=== PATIENT | female | born 1950 | race Caucasian/White ===

== ENCOUNTER 2019-05-17 01:08 | Inpatient (IN) ==
[2019-05-17] MEDS ORDERED: ENOXAPARIN 100 MG/ML SYRINGE SUBCUT STA (01:24)
[2019-05-17] MEDS ORDERED: dilTIAZem Drip 125 MG/125 ML PREMIX IV ONE (01:24)
[2019-05-17] MEDS ORDERED: ONDANSETRON 4 MG/2 ML VIAL IV STA (01:24)
[2019-05-17] MEDS ORDERED: ENOXAPARIN 100 MG/ML SYRINGE SUBCUT ONE (01:24)
[2019-05-17] MEDS ORDERED: DILTIAZEM 50 MG/10 ML VIAL IV STA ×2 (01:24→01:37)
[2019-05-17] MEDS ORDERED: ASPIRIN 325 MG TABLET ONE (01:24)
[2019-05-17] MEDS: dilTIAZem Drip 125 MG/125 ML PREMIX IV SCH (01:32)
[2019-05-17] MEDS ORDERED: ASPIRIN 325 MG TABLET PO STA (01:33)
[2019-05-17 01:34] LABS: Mean Corpuscular HGB Conc 29.2 GM/DL (32-36); NRBC # 0.07 10*3/uL; Red Cell Distribution Width 19.2 % (9.3-17.3)
[2019-05-17] MEDS ORDERED: FUROSEMIDE 40 MG/4 ML VIAL IV STA (01:36)
[2019-05-17 01:44] LABS: PT Patient Result 10.5 SECS (9.6-12.2)
[2019-05-17 01:45] LABS: Basophils % 0.3 % (0.0-0.8); Eosinophils % 0.1 % (0.00-10.9); Hematocrit 38.7 VOL% (35.7-47.0); Immature Granulocytes % 0.5 %; Immature Granulocytes Absolute 0.04 #; Lymphocytes # 1.7 10*3/uL (1.4-4.0); Lymphocytes % 21.5 % (21.3-54.2); Mean Corpuscular Volume 62.4 FL (87-102); Monocytes % 6.5 % (1.7-12.7); Neutrophils % 71.1 % (38.7-73.9); Platelet Count 228 T/CUMM (130-400); White Blood Count 7.9 T/CUMM (4-12)
[2019-05-17 01:46] LABS: Hemoglobin 11.3 GM/DL (12.0-16.0)
[2019-05-17] MEDS ORDERED: METOPROLOL TARTRATE 5 MG/5 ML VIAL IV ONE ×2 (01:57→12:14)
[2019-05-17] MEDS ORDERED: METOPROLOL TARTRATE 5 MG/5 ML VIAL IV STA (02:01)
[2019-05-17 02:24] LABS: Albumin 3.4 G/DL (3.4-5.0); Bilirubin,Total 0.6 MG/DL (0.2-1.0); Calcium 8.6 MG/DL (8.5-10.1); Osmolality,Calculated 286.5 MOS/KG (273-304); Total Protein 7.8 G/DL (6.4-8.3)
[2019-05-17 02:31] LABS: Free T4 (Free Thyroxine) 1.75 NG/DL (0.76-1.46); Thyroid Stimulating Hormone 0.006 uIU/ml (0.358-3.74)
[2019-05-17] MEDS ORDERED: MAGNESIUM SULF RIDER 2 GM in PREMIX 1 EACH IV STA (02:39)
[2019-05-17 04:53] LABS: Apearance,Urine CLEAR (Clear); Bacteria,Urine Many /HPF (Few); Bilirubin,Urine Negative (Negative); Blood, Urine Negative (Negative); Glucose,Urine (UA) 50 mg/dL (Negative); Hyaline Casts,Urine 9 /LPF (0-3); Ketones,Urine 5 mg/dL (Negative); Mucus,Urine Occasional /LPF (Occasional); Nitrite,Urine Negative (Negative); Protein,Urine Negative; RBC,Urine 1 /HPF (0-4); Squamous Epithelial Cell,Urine Occasional /HPF (0-10); Urine Color Yellow (Yellow); Urine Specific Gravity 1.011 (1.001-1.035); WBC,Urine 2 /HPF (0-6)
[2019-05-17] MEDS ORDERED: GLUCAGON 1 MG VIAL IM PRN (06:23)
[2019-05-17] MEDS ORDERED: DOCUSATE SODIUM 100 MG CAPSULE PO PRN (06:23)
[2019-05-17] MEDS ORDERED: DEXTROSE 50% 25 GM/50 ML VIAL IV PRN (06:23)
[2019-05-17] MEDS ORDERED: ONDANSETRON 4 MG/2 ML VIAL IV PRN (06:23)
[2019-05-17] MEDS ORDERED: PROMETHAZINE 25 MG/1 ML VIAL IM PRN (06:23)
[2019-05-17] MEDS ORDERED: MAGNESIUM SULF RIDER 4 GM in PREMIX 1 EACH IV PRN (06:28)
[2019-05-17] MEDS ORDERED: MAGNESIUM SULF RIDER 2 GM in PREMIX 1 EACH IV PRN (06:28)
[2019-05-17] MEDS ORDERED: SODIUM CHLORIDE 0.9% 1,000 ML IV SCH (06:30)
[2019-05-17] MEDS ORDERED: POTASSIUM CHLORIDE 20 MEQ TABLET PO PRN (06:31)
[2019-05-17] MEDS: INSULIN LISPRO 100 UNIT/ML SUBCUT SCH ×4 (08:10→21:32)
[2019-05-17] MEDS ORDERED: AMIODARONE INJ 150 MG in DEXTROSE 5% 100 ML IV ONE (12:19)
[2019-05-17] MEDS ORDERED: AMIODARONE INJ 450 MG in DEXTROSE 5% 241 ML IV SCH (12:30)
[2019-05-17] MEDS ORDERED: ENOXAPARIN 100 MG/ML SYRINGE SUBCUT SCH (13:00)
[2019-05-17] MEDS ORDERED: ENOXAPARIN 80 MG/0.8 ML SYRINGE SUBCUT SCH (13:00)
[2019-05-17] MEDS: carvediloL 3.125 MG TABLET PO SCH ×2 (13:36→21:12)
[2019-05-17] MEDS: ESTROGENS (CONJ) 0.625 MG TABLET PO SCH (16:27)
[2019-05-17] MEDS: DILTIAZEM 30 MG TABLET PO SCH ×2 (16:45→21:12)
[2019-05-17] MEDS: SACUBITRIL/VALSARTAN 49-51 MG TABLET PO SCH (21:12)
[2019-05-17] MEDS: APIXABAN 5 MG TABLET PO SCH (21:12)
[2019-05-17] MEDS: ASCORBIC ACID 500 MG TABLET PO SCH (21:12)
[2019-05-17] MEDS: AMIODARONE INJ 450 MG in DEXTROSE 5% 241 ML IV SCH (21:13)
[2019-05-18] MEDS: dilTIAZem Drip 125 MG/125 ML PREMIX IV SCH (01:40)
[2019-05-18] MEDS: ACETAMINOPHEN 325 MG TABLET PO PRN ×2 (02:55→14:26)
[2019-05-18 04:37] LABS: Basophils % 0.6 % (0.0-0.8); Eosinophils # 0.1 10*3/uL (0.0-0.87); Hemoglobin 9.9 GM/DL (12.0-16.0); Immature Granulocytes % 0.6 %; Immature Granulocytes Absolute 0.03 #; Lymphocytes # 2.3 10*3/uL (1.4-4.0); Lymphocytes % 48.6 % (21.3-54.2); Mean Corpuscular Volume 61.3 FL (87-102); Monocytes % 11.6 % (1.7-12.7); NRBC # 0.04 10*3/uL; Neutrophils % 35.6 % (38.7-73.9); Platelet Count 157 T/CUMM (130-400); Red Blood Count 5.38 MC/CUMM (3.8-5.5); Red Cell Distribution Width 18.3 % (9.3-17.3); White Blood Count 4.7 T/CUMM (4-12)
[2019-05-18 05:00] LABS: Calcium 8.2 MG/DL (8.5-10.1); Osmolality,Calculated 281.5 MOS/KG (273-304)
[2019-05-18 05:10] LABS: Eosinophils 2 % (0-10); Hypochromasia 1+; Lymphocytes 43 % (20-55); Macrocytosis Slight; Nucleated Red Blood Cells 2 (0-5); Ovalocytes Slight; Platelet Estimate Adequate; Polychromasia Slight; Segmented Neutrophils 42 % (50-85); Total Cells Counted 100
[2019-05-18] MEDS ORDERED: MAGNESIUM SULF RIDER 2 GM in PREMIX 1 EACH IV ONE (07:19)
[2019-05-18] MEDS: INSULIN LISPRO 100 UNIT/ML SUBCUT SCH ×4 (08:58→22:54)
[2019-05-18] MEDS: SACUBITRIL/VALSARTAN 49-51 MG TABLET PO SCH ×2 (08:59→21:56)
[2019-05-18] MEDS: APIXABAN 5 MG TABLET PO SCH ×2 (09:00→21:55)
[2019-05-18] MEDS: carvediloL 3.125 MG TABLET PO SCH (09:00)
[2019-05-18] MEDS: ASCORBIC ACID 500 MG TABLET PO SCH ×2 (09:00→21:55)
[2019-05-18] MEDS: DILTIAZEM CD 180 MG CAPSULE PO SCH ×2 (09:00→21:55)
[2019-05-18] MEDS: AMIODARONE 200 MG TABLET PO SCH ×2 (09:00→21:56)
[2019-05-18] MEDS: ESTROGENS (CONJ) 0.625 MG TABLET PO SCH (09:01)
[2019-05-18] MEDS: POTASSIUM CHLORIDE 20 MEQ TABLET PO SCH (09:01)
[2019-05-18] MEDS ORDERED: POTASSIUM CHLORIDE 20 MEQ TABLET PO ONE (10:13)
[2019-05-18] MEDS ORDERED: DIGOXIN 0.5 MG/2 ML AMP IV ONE (11:16)
[2019-05-18] MEDS: AMIODARONE INJ 450 MG in DEXTROSE 5% 241 ML IV SCH (13:00)
[2019-05-18] MEDS ORDERED: DILTIAZEM 60 MG TABLET PO ONE (13:25)
[2019-05-18] MEDS ORDERED: carvediloL 3.125 MG TABLET PO ONE (13:25)
[2019-05-18] MEDS: metFORMIN 500 MG TABLET PO SCH ×2 (15:01→21:56)
[2019-05-18] MEDS: carvediloL 6.25 MG TABLET PO SCH (22:53)
[2019-05-19] MEDS: dilTIAZem Drip 125 MG/125 ML PREMIX IV SCH (02:42)
[2019-05-19 07:05] LABS: Calcium 8.5 MG/DL (8.5-10.1); Osmolality,Calculated 282.4 MOS/KG (273-304)
[2019-05-19 07:31] LABS: Basophils % 0.6 % (0.0-0.8); Eosinophils # 0.1 10*3/uL (0.0-0.87); Hematocrit 36.7 VOL% (35.7-47.0); Hemoglobin 10.8 GM/DL (12.0-16.0); Immature Granulocytes % 0.4 %; Immature Granulocytes Absolute 0.02 #; Lymphocytes # 1.6 10*3/uL (1.4-4.0); Mean Corpuscular HGB Conc 29.4 GM/DL (32-36); Monocytes % 11.7 % (1.7-12.7); NRBC # 0.03 10*3/uL; Neutrophils % 52.3 % (38.7-73.9); Platelet Count 200 T/CUMM (130-400); Red Blood Count 5.83 MC/CUMM (3.8-5.5); Red Cell Distribution Width 19.2 % (9.3-17.3)
[2019-05-19] MEDS: INSULIN LISPRO 100 UNIT/ML SUBCUT SCH ×4 (09:05→21:40)
[2019-05-19] MEDS: POTASSIUM CHLORIDE 20 MEQ TABLET PO SCH (09:06)
[2019-05-19] MEDS: metFORMIN 500 MG TABLET PO SCH ×2 (09:06→21:39)
[2019-05-19] MEDS: carvediloL 6.25 MG TABLET PO SCH ×2 (09:06→21:39)
[2019-05-19] MEDS: ASCORBIC ACID 500 MG TABLET PO SCH ×2 (09:06→21:39)
[2019-05-19] MEDS: ESTROGENS (CONJ) 0.625 MG TABLET PO SCH (09:06)
[2019-05-19] MEDS: SACUBITRIL/VALSARTAN 49-51 MG TABLET PO SCH ×2 (09:07→21:40)
[2019-05-19] MEDS: AMIODARONE 200 MG TABLET PO SCH ×2 (09:07→21:38)
[2019-05-19] MEDS: DILTIAZEM CD 180 MG CAPSULE PO SCH ×2 (09:07→21:37)
[2019-05-19] MEDS: APIXABAN 5 MG TABLET PO SCH ×2 (09:07→21:40)
[2019-05-19 09:16] LABS: Anisocytosis 3+; Atypical Lymphocytes Few; Elliptocytes Few; Hypochromasia 2+; Microcytosis 2+; Ovalocytes Few; Platelet Estimate Adequate; Poikilocytosis 2+; Polychromasia Slight; Spherocytes Few; Target Cells Few
[2019-05-19] MEDS ORDERED: MAGNESIUM SULF RIDER 2 GM in PREMIX 1 EACH IV ONE (11:35)
[2019-05-20 06:53] LABS: Basophils % 0.4 % (0.0-0.8); Eosinophils # 0.1 10*3/uL (0.0-0.87); Eosinophils % 2.6 % (0.00-10.9); Hematocrit 35.3 VOL% (35.7-47.0); Hemoglobin 10.5 GM/DL (12.0-16.0); Immature Granulocytes % 0.4 %; Immature Granulocytes Absolute 0.02 #; Lymphocytes # 2.3 10*3/uL (1.4-4.0); Mean Corpuscular HGB Conc 29.7 GM/DL (32-36); Mean Corpuscular Volume 61.4 FL (87-102); Neutrophils % 42.6 % (38.7-73.9); Platelet Count 169 T/CUMM (130-400); Red Blood Count 5.75 MC/CUMM (3.8-5.5); Red Cell Distribution Width 18.6 % (9.3-17.3); White Blood Count 5.4 T/CUMM (4-12)
[2019-05-20 07:17] LABS: Calcium 8.2 MG/DL (8.5-10.1); Osmolality,Calculated 283.1 MOS/KG (273-304)
[2019-05-20] MEDS: ESTROGENS (CONJ) 0.625 MG TABLET PO SCH (09:30)
[2019-05-20] MEDS: AMIODARONE 200 MG TABLET PO SCH ×2 (09:30→20:57)
[2019-05-20] MEDS: metFORMIN 500 MG TABLET PO SCH (09:30)
[2019-05-20] MEDS: SACUBITRIL/VALSARTAN 49-51 MG TABLET PO SCH ×2 (09:31→20:56)
[2019-05-20] MEDS: DILTIAZEM CD 180 MG CAPSULE PO SCH ×2 (09:31→20:56)
[2019-05-20] MEDS: POTASSIUM CHLORIDE 20 MEQ TABLET PO SCH (09:32)
[2019-05-20] MEDS: APIXABAN 5 MG TABLET PO SCH ×2 (09:32→20:56)
[2019-05-20] MEDS: ASCORBIC ACID 500 MG TABLET PO SCH ×2 (09:32→20:56)
[2019-05-20] MEDS: carvediloL 6.25 MG TABLET PO SCH (09:32)
[2019-05-20] MEDS: INSULIN LISPRO 100 UNIT/ML SUBCUT SCH ×4 (09:33→20:57)
[2019-05-20 10:25] LABS: Anisocytosis 2+; Hypochromasia 2+; Microcytosis 1+; Ovalocytes 1+; Polychromasia Slight; Schistocytes Few; Spherocytes Slight; Target Cells 1+
[2019-05-20 10:26] LABS: Platelet Estimate Adequate
[2019-05-20] MEDS ORDERED: MAGNESIUM SULF RIDER 2 GM in PREMIX 1 EACH IV ONE (11:11)
[2019-05-20] MEDS ORDERED: carvediloL 6.25 MG TABLET PO ONE (11:18)
[2019-05-20] MEDS: FUROSEMIDE 40 MG/4 ML VIAL IV SCH ×2 (14:58→17:34)
[2019-05-20] MEDS ORDERED: carvediloL 12.5 MG TABLET PO SCH (17:00)
[2019-05-21 05:54] LABS: Osmolality,Calculated 278.7 MOS/KG (273-304)
[2019-05-21] MEDS ORDERED: carvediloL 25 MG TABLET PO SCH (06:15)
[2019-05-21] MEDS: INSULIN LISPRO 100 UNIT/ML SUBCUT SCH ×2 (08:59→12:02)
[2019-05-21] MEDS ORDERED: POTASSIUM CHLORIDE 20 MEQ TABLET PO SCH (09:00)
[2019-05-21] MEDS: FUROSEMIDE 40 MG/4 ML VIAL IV SCH (09:01)
[2019-05-21] MEDS: ESTROGENS (CONJ) 0.625 MG TABLET PO SCH (09:02)
[2019-05-21] MEDS: SACUBITRIL/VALSARTAN 49-51 MG TABLET PO SCH (09:02)
[2019-05-21] MEDS: AMIODARONE 200 MG TABLET PO SCH (09:02)
[2019-05-21] MEDS: DILTIAZEM CD 180 MG CAPSULE PO SCH (09:03)
[2019-05-21] MEDS: APIXABAN 5 MG TABLET PO SCH (09:03)
[2019-05-21] MEDS: ASCORBIC ACID 500 MG TABLET PO SCH (09:03)
[2019-05-21 12:03] VITALS: BP 100/87
== END 2019-05-21 13:45 | disposition home or self-care (01) | DRG 309 ==
LOC: N.ED 01:08 → N.EDINP 06:10 → N.TELEN 12:12
PROVIDERS: ADMIT Internal Medicine; ATTEND Internal Medicine

== ENCOUNTER 2021-01-12 05:57 | Inpatient (IN) ==
[2021-01-05 12:47] LABS: INR 1.1; Partial Thromboplastin Time 26.7 SECS (23.9-33.8)
[2021-01-12] MEDS ORDERED: ACETAMINOPHEN 500 MG TABLET PO ONE (06:00)
[2021-01-12] MEDS ORDERED: FAMOTIDINE 20 MG TABLET PO ONE (06:00)
[2021-01-12] MEDS ORDERED: GABAPENTIN 400 MG CAPSULE PO ONE (06:00)
[2021-01-12] MEDS: LACTATED RINGERS 1,000 ML IV SCH ×2 (06:30→10:30)
[2021-01-12] MEDS ORDERED: propofoL 200 MG/20 ML VIAL IV ONE (06:34)
[2021-01-12] MEDS ORDERED: fentaNYL 100 MCG/2 ML VIAL ONE (06:34)
[2021-01-12] MEDS ORDERED: ONDANSETRON 4 MG/2 ML VIAL ONE (06:34)
[2021-01-12] MEDS ORDERED: ROCURONIUM 50 MG/5 ML VIAL IV ONE (06:34)
[2021-01-12] MEDS ORDERED: LIDOCAINE 2% 5 ML VIAL ONE (06:34)
[2021-01-12] MEDS ORDERED: SEVOFLURANE 1 UNIT/15 MINUTE INH ONE ×4 (06:34→08:26)
[2021-01-12] MEDS ORDERED: BUPIVACAINE MPF 0.25% 30 ML VIAL ONE (06:37)
[2021-01-12] MEDS ORDERED: LIDOCAINE 1%/EPI INJ 20 ML VIAL ONE (06:37)
[2021-01-12] MEDS ORDERED: TISSUE ADHESIVE 1 EACH APPLICATOR TOP ONE (06:37)
[2021-01-12] MEDS ORDERED: ePHEDrine 50 MG/ML VIAL ONE (07:18)
[2021-01-12] MEDS ORDERED: GLYCOPYRROLATE 0.4 MG/2 ML VIAL ONE (07:19)
[2021-01-12] MEDS ORDERED: NEOSTIGMINE 10 MG/10 ML VIAL ONE (07:19)
[2021-01-12] MEDS ORDERED: MORPHINE 10 MG/1 ML VIAL ONE (08:39)
[2021-01-12] MEDS ORDERED: ONDANSETRON 4 MG/2 ML VIAL IV PRN (09:24)
[2021-01-12] MEDS ORDERED: HYDROmorphone 2 MG/1 ML VIAL ONE (09:26)
[2021-01-12] MEDS: HYDROmorphone 2 MG/1 ML VIAL IV PRN ×5 (09:27→20:01)
[2021-01-12] MEDS: MORPHINE 2 MG/1 ML SYRINGE IV PRN ×4 (10:42→22:39)
[2021-01-12] MEDS: ONDANSETRON 4 MG/2 ML VIAL IV PRN ×3 (12:08→22:39)
[2021-01-12] MEDS: PANTOPRAZOLE 40 MG TABLET PO SCH (16:14)
[2021-01-12] MEDS: carvediloL 12.5 MG TABLET PO SCH (16:31)
[2021-01-12] MEDS: SACUBITRIL/VALSARTAN 49-51 MG TABLET PO SCH (21:52)
[2021-01-12] MEDS: ASCORBIC ACID 500 MG TABLET PO SCH (21:53)
[2021-01-12] MEDS: DILTIAZEM CD 180 MG CAPSULE PO SCH (21:53)
[2021-01-13] MEDS: ONDANSETRON 4 MG/2 ML VIAL IV PRN ×5 (03:50→21:21)
[2021-01-13] MEDS: HYDROmorphone 2 MG/1 ML VIAL IV PRN ×6 (03:51→21:21)
[2021-01-13 05:12] LABS: Basophils % 0.1 % (0.0-0.8); Hematocrit 36.8 VOL% (35.7-47.0); Immature Granulocytes % 0.6 %; Lymphocytes % 6.3 % (21.3-54.2); Mean Corpuscular HGB Conc 29.9 GM/DL (32-36); Mean Corpuscular Volume 61.6 FL (87-102); Monocytes % 8.3 % (1.7-12.7); Neutrophils % 84.7 % (38.7-73.9); Platelet Count 140 T/CUMM (130-400); Red Blood Count 5.97 MC/CUMM (3.8-5.5); Red Cell Distribution Width 17.8 % (9.3-17.3); White Blood Count 16.1 T/CUMM (4-12)
[2021-01-13 05:30] LABS: Albumin 3.3 G/DL (3.4-5.0); Bilirubin,Total 1.3 MG/DL (0.20-1.00); Osmolality,Calculated 278.7 MOS/KG (273-304); Potassium 3.6 MMOL/L (3.5-5.1); Total Protein 7.3 G/DL (6.4-8.2)
[2021-01-13 05:34] LABS: Anisocytosis Slight; Hypochromasia Slight; Ovalocytes 1+; Platelet Estimate Adequate
[2021-01-13] MEDS ORDERED: LEVOTHYROXINE 200 MCG TABLET PO SCH (06:30)
[2021-01-13] MEDS: ROSUVASTATIN 20 MG TABLET PO SCH (09:13)
[2021-01-13] MEDS: SACUBITRIL/VALSARTAN 49-51 MG TABLET PO SCH ×2 (09:14→21:21)
[2021-01-13] MEDS: POTASSIUM CHLORIDE 20 MEQ TABLET PO SCH (09:14)
[2021-01-13] MEDS: LEVOTHYROXINE 200 MCG TABLET PO SCH (09:14)
[2021-01-13] MEDS: DILTIAZEM CD 180 MG CAPSULE PO SCH ×2 (09:14→21:22)
[2021-01-13] MEDS: ASCORBIC ACID 500 MG TABLET PO SCH ×2 (09:14→21:22)
[2021-01-13] MEDS: PANTOPRAZOLE 40 MG TABLET PO SCH (09:14)
[2021-01-13] MEDS: carvediloL 12.5 MG TABLET PO SCH ×2 (09:14→16:21)
[2021-01-13] MEDS: LACTATED RINGERS 1,000 ML IV SCH (09:29)
[2021-01-14] MEDS: ONDANSETRON 4 MG/2 ML VIAL IV PRN ×5 (01:36→21:02)
[2021-01-14] MEDS: HYDROmorphone 2 MG/1 ML VIAL IV PRN ×5 (01:37→20:35)
[2021-01-14 04:56] LABS: Basophils % 0.2 % (0.0-0.8); Eosinophils # 0.1 10*3/uL (0.0-0.87); Eosinophils % 0.7 % (0.00-10.9); Hematocrit 34.3 VOL% (35.7-47.0); Hemoglobin 10.4 GM/DL (12.0-16.0); Immature Granulocytes % 0.5 %; Immature Granulocytes Absolute 0.05 #; Lymphocytes # 2.2 10*3/uL (1.4-4.0); Lymphocytes % 21.1 % (21.3-54.2); Mean Corpuscular HGB Conc 30.3 GM/DL (32-36); Mean Corpuscular Volume 61.1 FL (87-102); Monocytes % 13.2 % (1.7-12.7); Neutrophils % 64.3 % (38.7-73.9); Platelet Count 144 T/CUMM (130-400); Red Blood Count 5.61 MC/CUMM (3.8-5.5); Red Cell Distribution Width 17.2 % (9.3-17.3); White Blood Count 10.3 T/CUMM (4-12)
[2021-01-14 05:21] LABS: Albumin 2.7 G/DL (3.4-5.0); Bilirubin,Total 1.5 MG/DL (0.20-1.00); Calcium 9.2 MG/DL (8.5-10.1); Potassium 3.6 MMOL/L (3.5-5.1); Total Protein 6.8 G/DL (6.4-8.2)
[2021-01-14] MEDS: LEVOTHYROXINE 200 MCG TABLET PO SCH (05:35)
[2021-01-14] MEDS: POTASSIUM CHLORIDE 20 MEQ TABLET PO SCH (08:57)
[2021-01-14] MEDS: carvediloL 12.5 MG TABLET PO SCH ×2 (08:57→17:06)
[2021-01-14] MEDS: ASCORBIC ACID 500 MG TABLET PO SCH ×2 (08:57→20:34)
[2021-01-14] MEDS: DILTIAZEM CD 180 MG CAPSULE PO SCH ×2 (08:57→21:08)
[2021-01-14] MEDS: ROSUVASTATIN 20 MG TABLET PO SCH (08:57)
[2021-01-14] MEDS: PANTOPRAZOLE 40 MG TABLET PO SCH (08:57)
[2021-01-14] MEDS: SACUBITRIL/VALSARTAN 49-51 MG TABLET PO SCH ×2 (08:57→20:35)
[2021-01-14] MEDS: LACTATED RINGERS 1,000 ML IV SCH (11:35)
[2021-01-14] MEDS: TAMSULOSIN 0.4 MG CAPSULE PO SCH (20:35)
[2021-01-15] MEDS: ONDANSETRON 4 MG/2 ML VIAL IV PRN (01:30)
[2021-01-15] MEDS: HYDROmorphone 2 MG/1 ML VIAL IV PRN ×2 (01:34→22:42)
[2021-01-15 04:54] LABS: PT Patient Result 11.1 SECS (10.5-12.0)
[2021-01-15] MEDS: LEVOTHYROXINE 200 MCG TABLET PO SCH (06:16)
[2021-01-15] MEDS ORDERED: INDOMETHACIN SUPP 50 MG SUPP RECTAL ONE ×3 (06:40→12:23)
[2021-01-15] MEDS ORDERED: FAMOTIDINE 20 MG/2 ML VIAL IV ONE (07:23)
[2021-01-15] MEDS: SACUBITRIL/VALSARTAN 49-51 MG TABLET PO SCH ×2 (09:52→21:02)
[2021-01-15] MEDS: ASCORBIC ACID 500 MG TABLET PO SCH ×2 (09:52→21:02)
[2021-01-15] MEDS: ROSUVASTATIN 20 MG TABLET PO SCH (09:52)
[2021-01-15] MEDS: DILTIAZEM CD 180 MG CAPSULE PO SCH ×2 (09:52→21:02)
[2021-01-15] MEDS: POTASSIUM CHLORIDE 20 MEQ TABLET PO SCH (09:53)
[2021-01-15] MEDS: PANTOPRAZOLE 40 MG TABLET PO SCH (09:53)
[2021-01-15] MEDS: carvediloL 12.5 MG TABLET PO SCH ×2 (09:53→16:22)
[2021-01-15] MEDS: cefOXitin 1,000 MG in SODIUM CHLORIDE 0.9% 100 ML IV SCH ×3 (09:58→18:26)
[2021-01-15] MEDS: LACTATED RINGERS 1,000 ML IV SCH ×2 (10:37→10:38)
[2021-01-15] MEDS ORDERED: propofoL 200 MG/20 ML VIAL IV ONE (11:58)
[2021-01-15] MEDS ORDERED: SUCCINYLCHOLINE 200 MG/10 ML VIAL ONE (11:58)
[2021-01-15] MEDS ORDERED: LIDOCAINE 2% 5 ML VIAL ONE (11:58)
[2021-01-15] MEDS ORDERED: fentaNYL 100 MCG/2 ML VIAL ONE (11:58)
[2021-01-15] MEDS ORDERED: ONDANSETRON 4 MG/2 ML VIAL ONE ×2 (11:58→12:23)
[2021-01-15] MEDS ORDERED: PHENYLEPHRINE 1 MG/10 ML SYRINGE IV ONE (12:30)
[2021-01-15] MEDS ORDERED: ePHEDrine 50 MG/ML VIAL ONE (12:40)
[2021-01-15] MEDS ORDERED: SEVOFLURANE 1 UNIT/15 MINUTE INH ONE (13:14)
[2021-01-15] MEDS: TAMSULOSIN 0.4 MG CAPSULE PO SCH (21:02)
[2021-01-16] MEDS: cefOXitin 1,000 MG in SODIUM CHLORIDE 0.9% 100 ML IV SCH ×3 (01:49→14:28)
[2021-01-16] MEDS: LEVOTHYROXINE 200 MCG TABLET PO SCH (06:28)
[2021-01-16] MEDS: POTASSIUM CHLORIDE 20 MEQ TABLET PO SCH (09:09)
[2021-01-16] MEDS: SACUBITRIL/VALSARTAN 49-51 MG TABLET PO SCH (09:09)
[2021-01-16] MEDS: PANTOPRAZOLE 40 MG TABLET PO SCH (09:09)
[2021-01-16] MEDS: ROSUVASTATIN 20 MG TABLET PO SCH (09:10)
[2021-01-16] MEDS: carvediloL 12.5 MG TABLET PO SCH ×2 (09:10→16:37)
[2021-01-16] MEDS: ASCORBIC ACID 500 MG TABLET PO SCH (09:10)
[2021-01-16] MEDS: DILTIAZEM CD 180 MG CAPSULE PO SCH (09:10)
[2021-01-16] MEDS: LACTATED RINGERS 1,000 ML IV SCH ×2 (09:40→09:41)
[2021-01-16 12:19] VITALS: BP 117/69
[2021-01-16] MEDS: HYDROmorphone 2 MG/1 ML VIAL IV PRN (14:28)
[2021-01-16] MEDS: ONDANSETRON 4 MG/2 ML VIAL IV PRN (14:29)
== END 2021-01-16 17:05 | disposition home or self-care (01) | DRG 418 ==
LOC: N.OR 05:57 → N.SDSINP 05:59 → N.TELEN 15:57
PROVIDERS: ADMIT Surgery; ATTEND Surgery
PROC: LAPCHOL (2021-01-12 06:59)

== ENCOUNTER 2022-04-15 09:23 | Inpatient (IN) ==
[2022-04-15] MEDS ORDERED: DILTIAZEM 50 MG/10 ML VIAL IV STA (09:54)
[2022-04-15 10:07] LABS: Basophils # 0.1 10*3/uL (0.0-0.2); Basophils % 0.6 % (0.0-0.8); Eosinophils # 0.1 10*3/uL (0.0-0.87); Eosinophils % 0.7 % (0.00-10.9); Hematocrit 33.2 VOL% (35.7-47.0); Hemoglobin 10.1 GM/DL (12.0-16.0); Immature Granulocytes % 0.9 %; Immature Granulocytes Absolute 0.08 #; Lymphocytes # 1.9 10*3/uL (1.4-4.0); Lymphocytes % 22.3 % (21.3-54.2); Mean Corpuscular HGB Conc 30.4 GM/DL (32-36); Mean Corpuscular Volume 63.1 FL (87-102); Monocytes # 0.9 10*3/uL (0.11-0.8); NRBC # 0.06 10*3/uL; Neutrophils % 65.5 % (38.7-73.9); Platelet Count 344 T/CUMM (130-400); Red Blood Count 5.26 MC/CUMM (3.8-5.5); White Blood Count 8.7 T/CUMM (4-12)
[2022-04-15 10:18] LABS: Albumin 3.1 G/DL (3.4-5.0); Bilirubin,Total 0.4 MG/DL (0.20-1.00); Calcium 9.2 MG/DL (8.5-10.1); Osmolality,Calculated 292.8 MOS/KG (273-304); Total Protein 7.7 G/DL (6.4-8.2)
[2022-04-15 10:31] LABS: Anisocytosis 1+; Platelet Estimate Normal
[2022-04-15 10:32] LABS: Basophilic Stippling Slight; Hypochromia 1+; Ovalocytes Few
[2022-04-15 10:33] LABS: Polychromasia Slight
[2022-04-15] MEDS ORDERED: FUROSEMIDE 40 MG/4 ML VIAL IV STA (10:53)
[2022-04-15] MEDS ORDERED: DILTIAZEM INJ 100 MG in SODIUM CHLORIDE 0.9% 100 ML IV SCH (11:00)
[2022-04-15] MEDS ORDERED: ONDANSETRON 4 MG/2 ML VIAL IV PRN (11:30)
[2022-04-15] MEDS ORDERED: hydrALAZINE 20 MG/1 ML VIAL IV PRN (11:30)
[2022-04-15] MEDS ORDERED: GLUCAGON 1 MG VIAL IM PRN (11:30)
[2022-04-15] MEDS ORDERED: NON-FORMULARY MEDICATION (Promethazine-Dm 6.25-15 mg/5 mL Syrup) PO PRN (11:33)
[2022-04-15] MEDS ORDERED: BENZONATATE 100 MG CAPSULE PO PRN (11:33)
[2022-04-15] MEDS ORDERED: MAGNESIUM SULF RIDER 2 GM/50 ML PREMIX IV ONE ×2 (11:34→11:35)
[2022-04-15] MEDS ORDERED: DEXTROSE 10% 250 ML BAG IV PRN (12:18)
[2022-04-15] MEDS: INSULIN LISPRO 100 UNIT/ML SUBCUT SCH ×2 (16:33→21:20)
[2022-04-15] MEDS: metFORMIN 500 MG TABLET PO SCH (16:33)
[2022-04-15] MEDS ORDERED: DILTIAZEM CD 180 MG CAPSULE PO SCH (21:00)
[2022-04-15] MEDS ORDERED: PROPRANOLOL 40 MG TABLET PO SCH (21:00)
[2022-04-15] MEDS: SOTALOL 80 MG TABLET PO SCH (21:19)
[2022-04-15] MEDS: AMOXICILLIN 875 MG TABLET PO SCH (21:19)
[2022-04-15] MEDS: ROSUVASTATIN 20 MG TABLET PO SCH (21:19)
[2022-04-15] MEDS: APIXABAN 5 MG TABLET PO SCH (21:19)
[2022-04-15] MEDS: POTASSIUM CHLORIDE 20 MEQ TABLET PO SCH (21:20)
[2022-04-15] MEDS: ASCORBIC ACID 500 MG TABLET PO SCH (21:20)
[2022-04-16 05:53] LABS: Basophils % 0.4 % (0.0-0.8); Eosinophils # 0.1 10*3/uL (0.0-0.87); Eosinophils % 1.3 % (0.00-10.9); Hematocrit 32.6 VOL% (35.7-47.0); Hemoglobin 9.8 GM/DL (12.0-16.0); Immature Granulocytes % 0.7 %; Immature Granulocytes Absolute 0.06 #; Lymphocytes # 2.2 10*3/uL (1.4-4.0); Lymphocytes % 27.2 % (21.3-54.2); Mean Corpuscular HGB Conc 30.1 GM/DL (32-36); Mean Corpuscular Volume 63.8 FL (87-102); Monocytes # 0.9 10*3/uL (0.11-0.8); Monocytes % 11.2 % (1.7-12.7); NRBC # 0.02 10*3/uL; Neutrophils % 59.2 % (38.7-73.9); Platelet Count 263 T/CUMM (130-400); Red Blood Count 5.11 MC/CUMM (3.8-5.5); Red Cell Distribution Width 16.9 % (9.3-17.3); White Blood Count 8.2 T/CUMM (4-12)
[2022-04-16] MEDS: LEVOTHYROXINE 150 MCG TABLET PO SCH (06:01)
[2022-04-16 06:50] LABS: Calcium 8.9 MG/DL (8.5-10.1); Osmolality,Calculated 285.7 MOS/KG (273-304); Potassium 4.1 MMOL/L (3.5-5.1)
[2022-04-16 06:55] LABS: Anisocytosis 2+; Hypochromia Slight; Platelet Estimate Normal
[2022-04-16 06:56] LABS: Basophilic Stippling Slight; Ovalocytes 1+; Target Cells 1+; Tear Drop Cells Few
[2022-04-16] MEDS ORDERED: FUROSEMIDE 40 MG/4 ML VIAL IV ONE (07:45)
[2022-04-16] MEDS ORDERED: MAGNESIUM SULF RIDER 4 GM/100 ML PREMIX IV ONE (08:00)
[2022-04-16] MEDS: metFORMIN 500 MG TABLET PO SCH ×2 (09:00→16:28)
[2022-04-16] MEDS: INSULIN LISPRO 100 UNIT/ML SUBCUT SCH ×4 (09:01→22:37)
[2022-04-16] MEDS: AMOXICILLIN 875 MG TABLET PO SCH ×2 (09:03→22:35)
[2022-04-16] MEDS: APIXABAN 5 MG TABLET PO SCH ×2 (09:03→22:35)
[2022-04-16] MEDS: PANTOPRAZOLE 40 MG TABLET PO SCH (09:03)
[2022-04-16] MEDS: SOTALOL 80 MG TABLET PO SCH ×2 (09:04→22:35)
[2022-04-16] MEDS: DILTIAZEM CD 240 MG CAPSULE PO SCH ×2 (09:04→22:36)
[2022-04-16] MEDS: ASCORBIC ACID 500 MG TABLET PO SCH ×2 (09:04→22:35)
[2022-04-16] MEDS ORDERED: DIGOXIN 0.5 MG/2 ML AMP IV ONE (11:10)
[2022-04-16] MEDS: FUROSEMIDE 40 MG/4 ML VIAL IV SCH (16:27)
[2022-04-16] MEDS: ROSUVASTATIN 20 MG TABLET PO SCH (22:35)
[2022-04-16] MEDS: ACETAMINOPHEN 325 MG TABLET PO PRN (22:36)
[2022-04-16] MEDS: POTASSIUM CHLORIDE 20 MEQ TABLET PO SCH (22:36)
[2022-04-17 05:09] LABS: Basophils % 0.5 % (0.0-0.8); Eosinophils # 0.1 10*3/uL (0.0-0.87); Hematocrit 32.9 VOL% (35.7-47.0); Hemoglobin 9.9 GM/DL (12.0-16.0); Immature Granulocytes % 1.2 %; Immature Granulocytes Absolute 0.08 #; Lymphocytes # 2.4 10*3/uL (1.4-4.0); Lymphocytes % 36.5 % (21.3-54.2); Mean Corpuscular HGB Conc 30.1 GM/DL (32-36); Mean Corpuscular Volume 63.5 FL (87-102); Monocytes # 0.8 10*3/uL (0.11-0.8); Monocytes % 11.9 % (1.7-12.7); Neutrophils % 47.9 % (38.7-73.9); Platelet Count 288 T/CUMM (130-400); Red Blood Count 5.18 MC/CUMM (3.8-5.5); Red Cell Distribution Width 16.9 % (9.3-17.3); White Blood Count 6.5 T/CUMM (4-12)
[2022-04-17 05:18] LABS: Osmolality,Calculated 282.8 MOS/KG (273-304); Potassium 3.7 MMOL/L (3.5-5.1)
[2022-04-17] MEDS: LEVOTHYROXINE 150 MCG TABLET PO SCH (05:46)
[2022-04-17 06:04] LABS: Anisocytosis 1+; Ovalocytes Few; Platelet Estimate Normal
[2022-04-17 06:05] LABS: Hypochromia Slight; Target Cells Few; Tear Drop Cells Few
[2022-04-17] MEDS: ASCORBIC ACID 500 MG TABLET PO SCH ×2 (09:31→21:09)
[2022-04-17] MEDS: APIXABAN 5 MG TABLET PO SCH ×2 (09:31→21:09)
[2022-04-17] MEDS: DILTIAZEM CD 240 MG CAPSULE PO SCH ×2 (09:31→21:07)
[2022-04-17] MEDS: PANTOPRAZOLE 40 MG TABLET PO SCH (09:31)
[2022-04-17] MEDS: metFORMIN 500 MG TABLET PO SCH ×2 (09:31→17:21)
[2022-04-17] MEDS: AMOXICILLIN 875 MG TABLET PO SCH ×2 (09:31→21:08)
[2022-04-17] MEDS: FUROSEMIDE 40 MG/4 ML VIAL IV SCH ×2 (09:32→17:21)
[2022-04-17] MEDS: INSULIN LISPRO 100 UNIT/ML SUBCUT SCH ×4 (09:32→21:07)
[2022-04-17] MEDS: SOTALOL 80 MG TABLET PO SCH ×3 (09:38→21:07)
[2022-04-17] MEDS: ACETAMINOPHEN 325 MG TABLET PO PRN (15:05)
[2022-04-17] MEDS: ROSUVASTATIN 20 MG TABLET PO SCH (21:08)
[2022-04-17] MEDS: POTASSIUM CHLORIDE 20 MEQ TABLET PO SCH (21:08)
[2022-04-17] MEDS: DOCUSATE SODIUM 100 MG CAPSULE PO PRN (21:09)
[2022-04-18 04:52] LABS: Basophils % 0.5 % (0.0-0.8); Eosinophils # 0.1 10*3/uL (0.0-0.87); Eosinophils % 1.1 % (0.00-10.9); Hemoglobin 10.8 GM/DL (12.0-16.0); Immature Granulocytes % 1.1 %; Lymphocytes # 2.2 10*3/uL (1.4-4.0); Lymphocytes % 24.7 % (21.3-54.2); Mean Corpuscular Volume 64.9 FL (87-102); Monocytes # 0.9 10*3/uL (0.11-0.8); Monocytes % 9.8 % (1.7-12.7); NRBC # 0.02 10*3/uL; Neutrophils % 62.8 % (38.7-73.9); Platelet Count 299 T/CUMM (130-400); Red Blood Count 5.55 MC/CUMM (3.8-5.5); White Blood Count 8.8 T/CUMM (4-12)
[2022-04-18 05:08] LABS: Calcium 9.4 MG/DL (8.5-10.1); Osmolality,Calculated 286.7 MOS/KG (273-304); Potassium 3.8 MMOL/L (3.5-5.1)
[2022-04-18] MEDS: LEVOTHYROXINE 125 MCG TABLET PO SCH (06:19)
[2022-04-18] MEDS ORDERED: MAGNESIUM SULF RIDER 2 GM/50 ML PREMIX IV ONE (07:51)
[2022-04-18] MEDS: DILTIAZEM CD 240 MG CAPSULE PO SCH ×2 (09:44→21:23)
[2022-04-18] MEDS: metFORMIN 500 MG TABLET PO SCH ×2 (09:44→17:27)
[2022-04-18] MEDS: PANTOPRAZOLE 40 MG TABLET PO SCH (09:44)
[2022-04-18] MEDS: AMOXICILLIN 875 MG TABLET PO SCH ×2 (09:44→21:23)
[2022-04-18] MEDS: SOTALOL 80 MG TABLET PO SCH ×2 (09:44→21:24)
[2022-04-18] MEDS: APIXABAN 5 MG TABLET PO SCH ×2 (09:44→21:22)
[2022-04-18] MEDS: ASCORBIC ACID 500 MG TABLET PO SCH ×2 (09:44→21:24)
[2022-04-18] MEDS: FUROSEMIDE 40 MG/4 ML VIAL IV SCH ×2 (09:45→17:27)
[2022-04-18] MEDS: INSULIN LISPRO 100 UNIT/ML SUBCUT SCH ×4 (09:46→21:21)
[2022-04-18] MEDS: ROSUVASTATIN 20 MG TABLET PO SCH (21:22)
[2022-04-18] MEDS: POTASSIUM CHLORIDE 20 MEQ TABLET PO SCH (21:23)
[2022-04-19 04:36] LABS: Basophils % 0.6 % (0.0-0.8); Eosinophils # 0.1 10*3/uL (0.0-0.87); Eosinophils % 1.9 % (0.00-10.9); Hematocrit 35.1 VOL% (35.7-47.0); Hemoglobin 10.6 GM/DL (12.0-16.0); Immature Granulocytes Absolute 0.07 #; Lymphocytes # 2.8 10*3/uL (1.4-4.0); Lymphocytes % 39.1 % (21.3-54.2); Mean Corpuscular HGB Conc 30.2 GM/DL (32-36); Mean Corpuscular Volume 63.9 FL (87-102); Monocytes # 0.9 10*3/uL (0.11-0.8); Monocytes % 11.9 % (1.7-12.7); Neutrophils % 45.5 % (38.7-73.9); Platelet Count 317 T/CUMM (130-400); Red Blood Count 5.49 MC/CUMM (3.8-5.5); Red Cell Distribution Width 17.9 % (9.3-17.3); White Blood Count 7.2 T/CUMM (4-12)
[2022-04-19 05:01] LABS: Calcium 9.3 MG/DL (8.5-10.1); Osmolality,Calculated 289.4 MOS/KG (273-304); Potassium 3.8 MMOL/L (3.5-5.1)
[2022-04-19] MEDS: LEVOTHYROXINE 125 MCG TABLET PO SCH (05:59)
[2022-04-19] MEDS: INSULIN LISPRO 100 UNIT/ML SUBCUT SCH ×4 (09:42→22:05)
[2022-04-19] MEDS: metFORMIN 500 MG TABLET PO SCH ×2 (09:42→17:35)
[2022-04-19] MEDS: ASCORBIC ACID 500 MG TABLET PO SCH ×2 (09:48→22:05)
[2022-04-19] MEDS: SOTALOL 80 MG TABLET PO SCH (09:48)
[2022-04-19] MEDS: PANTOPRAZOLE 40 MG TABLET PO SCH (09:48)
[2022-04-19] MEDS: APIXABAN 5 MG TABLET PO SCH ×2 (09:49→22:05)
[2022-04-19] MEDS: FUROSEMIDE 40 MG/4 ML VIAL IV SCH ×2 (09:49→17:35)
[2022-04-19] MEDS: DILTIAZEM CD 240 MG CAPSULE PO SCH ×2 (09:53→22:09)
[2022-04-19] MEDS: AMOXICILLIN 875 MG TABLET PO SCH ×2 (09:54→22:10)
[2022-04-19] MEDS ORDERED: propofoL 200 MG/20 ML VIAL IV ONE (12:45)
[2022-04-19] MEDS ORDERED: LIDOCAINE 2% 5 ML VIAL ONE (12:45)
[2022-04-19] MEDS ORDERED: GLUCAGON 1 MG VIAL IM PRN (12:53)
[2022-04-19] MEDS ORDERED: DEXTROSE 10% 250 ML BAG IV PRN (12:58)
[2022-04-19] MEDS: ACETAMINOPHEN 325 MG TABLET PO PRN (22:05)
[2022-04-19] MEDS: POTASSIUM CHLORIDE 20 MEQ TABLET PO SCH (22:09)
[2022-04-19] MEDS: ROSUVASTATIN 20 MG TABLET PO SCH (22:09)
[2022-04-20] MEDS: DILTIAZEM CD 240 MG CAPSULE PO SCH ×3 (02:45→21:37)
[2022-04-20] MEDS: SOTALOL 80 MG TABLET PO SCH ×2 (02:45→09:05)
[2022-04-20 05:03] LABS: Basophils % 0.6 % (0.0-0.8); Eosinophils # 0.1 10*3/uL (0.0-0.87); Eosinophils % 2.2 % (0.00-10.9); Hematocrit 35.9 VOL% (35.7-47.0); Hemoglobin 10.8 GM/DL (12.0-16.0); Immature Granulocytes % 0.9 %; Immature Granulocytes Absolute 0.06 #; Lymphocytes # 2.6 10*3/uL (1.4-4.0); Lymphocytes % 40.7 % (21.3-54.2); Mean Corpuscular HGB Conc 30.1 GM/DL (32-36); Mean Corpuscular Volume 63.2 FL (87-102); Monocytes # 0.8 10*3/uL (0.11-0.8); Monocytes % 13.1 % (1.7-12.7); Neutrophils % 42.5 % (38.7-73.9); Platelet Count 336 T/CUMM (130-400); Red Blood Count 5.68 MC/CUMM (3.8-5.5); Red Cell Distribution Width 17.9 % (9.3-17.3); White Blood Count 6.4 T/CUMM (4-12)
[2022-04-20 05:20] LABS: Calcium 9.4 MG/DL (8.5-10.1)
[2022-04-20] MEDS: LEVOTHYROXINE 125 MCG TABLET PO SCH (05:38)
[2022-04-20 05:42] LABS: Anisocytosis 1+; Hypochromia 1+; Microcytosis 1+
[2022-04-20 05:43] LABS: Ovalocytes Few; Target Cells Slight
[2022-04-20 05:44] LABS: Platelet Estimate Normal; Tear Drop Cells Slight
[2022-04-20] MEDS: AMOXICILLIN 875 MG TABLET PO SCH ×2 (09:05→21:33)
[2022-04-20] MEDS: PANTOPRAZOLE 40 MG TABLET PO SCH (09:05)
[2022-04-20] MEDS: metFORMIN 500 MG TABLET PO SCH ×2 (09:05→17:20)
[2022-04-20] MEDS: ASCORBIC ACID 500 MG TABLET PO SCH ×2 (09:05→21:33)
[2022-04-20] MEDS: INSULIN LISPRO 100 UNIT/ML SUBCUT SCH ×4 (09:06→21:35)
[2022-04-20] MEDS: FUROSEMIDE 40 MG/4 ML VIAL IV SCH (09:06)
[2022-04-20] MEDS: APIXABAN 5 MG TABLET PO SCH ×2 (09:06→21:33)
[2022-04-20] MEDS ORDERED: MAGNESIUM SULF RIDER 2 GM/50 ML PREMIX IV ONE (12:28)
[2022-04-20] MEDS: ACETAMINOPHEN 325 MG TABLET PO PRN (21:34)
[2022-04-20] MEDS: ROSUVASTATIN 20 MG TABLET PO SCH (21:34)
[2022-04-20] MEDS: POTASSIUM CHLORIDE 20 MEQ TABLET PO SCH (21:34)
[2022-04-21 05:51] LABS: Calcium 8.9 MG/DL (8.5-10.1); Osmolality,Calculated 293.3 MOS/KG (273-304); Potassium 4.2 MMOL/L (3.5-5.1)
[2022-04-21 05:54] LABS: Basophils % 0.5 % (0.0-0.8); Eosinophils # 0.2 10*3/uL (0.0-0.87); Eosinophils % 2.8 % (0.00-10.9); Hematocrit 34.5 VOL% (35.7-47.0); Hemoglobin 10.5 GM/DL (12.0-16.0); Immature Granulocytes % 0.8 %; Immature Granulocytes Absolute 0.05 #; Lymphocytes # 2.5 10*3/uL (1.4-4.0); Lymphocytes % 39.4 % (21.3-54.2); Mean Corpuscular HGB Conc 30.4 GM/DL (32-36); Mean Corpuscular Volume 65.2 FL (87-102); Monocytes # 0.8 10*3/uL (0.11-0.8); Monocytes % 12.4 % (1.7-12.7); Neutrophils % 44.1 % (38.7-73.9); Platelet Count 265 T/CUMM (130-400); Red Blood Count 5.29 MC/CUMM (3.8-5.5); Red Cell Distribution Width 17.7 % (9.3-17.3); White Blood Count 6.4 T/CUMM (4-12)
[2022-04-21] MEDS: LEVOTHYROXINE 125 MCG TABLET PO SCH (06:10)
[2022-04-21] MEDS ORDERED: AMIODARONE INJ 150 MG in DEXTROSE 5% 100 ML IV ONE ×2 (08:02→08:07)
[2022-04-21] MEDS: metFORMIN 500 MG TABLET PO SCH (08:59)
[2022-04-21] MEDS: AMOXICILLIN 875 MG TABLET PO SCH (08:59)
[2022-04-21] MEDS: DILTIAZEM CD 240 MG CAPSULE PO SCH (08:59)
[2022-04-21] MEDS: APIXABAN 5 MG TABLET PO SCH (08:59)
[2022-04-21] MEDS: DOCUSATE SODIUM 100 MG CAPSULE PO PRN (08:59)
[2022-04-21] MEDS: PANTOPRAZOLE 40 MG TABLET PO SCH (08:59)
[2022-04-21] MEDS ORDERED: AMIODARONE 200 MG TABLET PO SCH (09:00)
[2022-04-21] MEDS: ASCORBIC ACID 500 MG TABLET PO SCH (09:00)
[2022-04-21] MEDS ORDERED: FUROSEMIDE 40 MG TABLET PO SCH (09:00)
[2022-04-21] MEDS: INSULIN LISPRO 100 UNIT/ML SUBCUT SCH ×2 (09:03→13:38)
[2022-04-21 12:52] VITALS: BP 145/72
== END 2022-04-21 15:30 | disposition home or self-care (01) | DRG 308 ==
LOC: N.ED 09:23 → SUATTDRO 12:40 → N.TELEN 12:40
PROVIDERS: ADMIT Internal Medicine; ATTEND Internal Medicine Geriatric Medicine